=== PATIENT | female | born 1995 | race Caucasian/White ===

== ENCOUNTER 2017-06-20 11:25 | Emergency (ER) | payer MEDICAID, OTHER ==
[2017-06-20 11:55] VITALS: BP 129/84
--- NOTE | 2017-06-20 12:48 | ED Physician Documentation ---
PD HPI HEENT - Stated complaint Stated Complaint: DIZZY - Chief complaint Chief Complaint: General - History obtained from History obtained from: Patient - History of Present Illness Timing - onset: How many weeks ago (1-2 weeks of intermittent dizziness with quick movement. Also having less hearing in ears, more to the right. Some ear pains. Denies vision changes. Says the dizziness does persist some even when lying still the past 2 days. Feeling of some double vision at times.) Timing - details: Gradual onset, Still present Location: Right ear, Left ear Worsens: No: Swalllowing Associated symptoms: No: Fever, Swollen nodes, Facial swelling, Cough Similar symptoms before: Diagnosis (ear wax impactions few years ago had similar symptoms.) Recently seen: Not recently seen Review of Systems Constitutional: denies: Fever, Chills Ears: reports: Loss of hearing (lessened but not lost acuity both ears.), Ear pain. denies: Drainage/discharge, Tinnitus/ringing Nose: denies: Rhinorrhea / runny nose, Congestion, Sinus pressure / pain Throat: denies: Sore throat Respiratory: denies: Cough GI: denies: Nausea, Vomiting, Diarrhea : denies: Dysuria, Frequency Skin: denies: Rash, Lesions Neurologic: denies: Focal weakness, Numbness, Near syncope, Altered mental status, Headache PD PAST MEDICAL HISTORY - Past Medical History Cardiovascular: None Respiratory: None Neuro: None Endocrine/Autoimmune: None - Present Medications Home Medications: Ambulatory Orders Medication Instructions Recorded Confirmed Dexamethasone [Decadron] 4 mg PO DAILY #5 tablet 06/20/17 Doxycycline Monohydrate 100 mg PO BID #14 tablet 06/20/17 Meclizine [Antivert] 12.5 mg PO Q6H PRN #30 tablet 06/20/17 Neomycin/Polymyxin B Sulf/Hc 3 drops EACHEAR QID #1 bottle 06/20/17 [Wjaotdzc-Iwgrsijst-He Ear Soln] - Allergies Allergies/Adverse Reactions: Allergies Allergy/AdvReac Type Severity Reaction Status Date / Time No Known Drug Allergies Allergy Verified 06/20/17 11:55 PD ED PE NORMAL - Vitals Vital signs reviewed: Yes - General General: Alert and oriented X 3, No acute distress, Well developed/nourished - HEENT HEENT: PERRL, EOMI (with mild nystagmus to the right. ), Moist mucous membranes , Pharynx benign, Dentition benign. No: Ears normal (ear wax occluding canal on both sides. ) - Neck Neck: Supple, no meningeal sign, Other (mild preauricular adenopathy. ) - Cardiac Cardiac: RRR, No murmur - Respiratory Respiratory: Clear bilaterally - Abdomen Abdomen: Soft, Non tender - Derm Derm: Normal color, Warm and dry, No rash - Neuro Neuro: Alert and oriented X 3, director of it operations 2-12 intact, No motor deficit, No sensory deficit, Normal speech, Other - Psych Psych: Normal mood, Normal affect Results - Vitals Vitals: Oxygen O2 Source Room air PD MEDICAL DECISION MAKING - ED course Complexity details: re-evaluated patient (significantly long for nurse flushing of ears, and the ears were tender/painful for flushing. However the wax impaction did clear and canal obviously infected behind. Presume this connects to feeling of dizziness and is peripheral. Defer further workup of the vertigo. She is feeling better after the wax removal. ), considered differential, d/w patient Departure - Departure Disposition: 01 Home, Self Care Clinical Impression: Dizziness Cerumen impaction Qualifiers: Laterality: bilateral Qualified Code(s): H61.23 - Impacted cerumen, bilateral Otitis externa Qualifiers: Otitis externa type: other infective Chronicity: acute Laterality: bilateral Qualified Code(s): H60.393 - Other infective otitis externa, bilateral Condition: Stable Record reviewed to determine appropriate education?: Yes Instructions: ED Vertigo Unspecified, ED Otitis Externa Follow-Up: [facility] [Provider Group] [facility] [Provider Group] Prescriptions: Dexamethasone [Decadron] 4 mg PO DAILY #5 tablet Doxycycline Monohydrate 100 mg PO BID #14 tablet Meclizine [Antivert] 12.5 mg PO Q6H PRN #30 tablet PRN Reason: Vertigo Neomycin/Polymyxin B Sulf/Hc [Mjkwqpzc-Rkksogdii-Fg Ear Soln] 3 drops EACHEAR QID #1 bottle Comments: The dizziness is presumed from the inflammation and infection of the ear canals which then related to the earwax blockage. Hopefully with that cleared out and will treat the infection with eardrops as well as oral medication, a presume the dizziness will improve. He can use meclizine if needed for the dizziness itself. Dexamethasone and doxycycline are for inflammation and infection orally. In the eardrops are to be used 4 times a day for the next 4-5 days in both ears to treated topically as well. Recheck if not better over the next few days. Rest off work for couple of days due to the dizziness. Return if not improved over the next few days. Forms: Activity restrictions Discharge Date/Time: 06/20/17 15:40
[2017-06-20] MEDS ORDERED: MECLIZINE 12.5 MG TABLET PO STA (13:14)
[2017-06-20] MEDS ORDERED: DEXAMETHASONE 10 MG/ML VIAL PO STA (13:14)
[2017-06-20] MEDS ORDERED: LIDOCAINE TOPICAL 4% 50 ML BOTTLE MM STA (14:29)
[2017-06-20] MEDS ORDERED: HYDROcod/ACETAM 5/325 MG TABLET PO STA (14:29)
== END 2017-06-20 15:40 | disposition home or self-care (01) ==
LOC: ED 11:25
DX: H61.23 Impacted cerumen, bilateral (principal); H60.593 Other noninfective acute otitis externa, bilateral; R42 Dizziness and giddiness
CPT/HCPCS: 99283; 99284; A9270

== ENCOUNTER 2018-03-29 13:32 | Outpatient (CLI) | payer OTHER, MEDICAID | END 2018-03-29 13:33 | disposition critical access hospital (66) | LOC: EMS 13:32 | PROVIDERS: ATTEND Surgery | DX: M79.661 Pain in right lower leg (principal); V43.52XA Car driver injured in collision with other type car in traffic accident, initial encounter; Y92.413 State road as the place of occurrence of the external cause | CPT/HCPCS: A0425; A0429 ==

== ENCOUNTER 2018-03-29 13:40 | Emergency (ER) | payer MEDICAID, OTHER ==
[2018-03-29] MEDS ORDERED: HYDROcod/ACETAM 5/325 MG TABLET PO STA (13:46)
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
[2018-03-29 15:52] VITALS: BP 130/76
== END 2018-03-29 15:50 | disposition home or self-care (01) ==
LOC: ED 13:40
DX: S06.0X1A Concussion with loss of consciousness of 30 minutes or less, initial encounter (principal); S80.01XA Contusion of right knee, initial encounter; V89.2XXA Person injured in unspecified motor-vehicle accident, traffic, initial encounter; Y92.410 Unspecified street and highway as the place of occurrence of the external cause
CPT/HCPCS: 70450; 72125; 73564; 99283; A9270

== ENCOUNTER 2021-07-23 10:29 | Emergency (ER) | payer BC, MEDICAID ==
[2021-07-23 10:59] LABS: BASOPHILS # (AUTO) 0.1 10^3/uL (0.0-0.1); BASOPHILS % (AUTO) 1.2 %; EOSINOPHILS # (AUTO) 0.9 10^3/uL (0.0-0.7); EOSINOPHILS % (AUTO) 13.8 %; HCT - HEMATOCRIT 42.2 % (37.0-47.0); HGB - HEMOGLOBIN 14.4 g/dL (12.0-16.0); LYMPHOCYTES # (AUTO) 1.9 10^3/uL (1.5-3.5); LYMPHOCYTES % (AUTO) 28.7 %; MEAN CORPUSCULAR HGB CONC 34.1 g/dL (32.0-36.0); MEAN CORPUSCULAR VOLUME 96.6 fL (81.0-99.0); MEAN PLATELET VOLUME 12.5 fL (7.9-10.8); MONOCYTES # (AUTO) 0.5 10^3/uL (0.0-1.0); MONOCYTES % (AUTO) 6.8 %; NEUTROPHILS # (AUTO) 3.3 10^3/uL (1.5-6.6); NEUTROPHILS % (AUTO) 49.3 %; PLT - PLATELET COUNT 164 10^3/uL (130-450); RED BLOOD COUNT 4.37 10^6/uL (4.20-5.40); RED CELL DISTRIBUTION WIDTH 12.4 % (12.0-15.0); WHITE BLOOD COUNT 6.7 x10^3/uL (4.8-10.8)
[2021-07-23] MEDS: SODIUM CHLORIDE 0.9% 1,000 ML IV STA (10:59)
[2021-07-23 11:20] LABS: ALBUMIN/GLOBULIN RATIO 1.3 (1.0-2.2); CALCIUM 8.2 mg/dL (8.5-10.3); CREATININE 0.7 mg/dL (0.4-1.0); POTASSIUM 3.7 mmol/L (3.5-5.0); TOTAL PROTEIN 7.1 g/dL (6.7-8.2)
--- NOTE | 2021-07-23 11:45 | ED Physician Documentation ---
History of Present Illness - Stated complaint Stated Complaint: ABDOMINAL PAIN - Chief complaint Chief Complaint: Abd Pain - History obtained from History obtained from: Patient - Additonal information Additional information: The patient comes to the emergency department with chief complaint of epigastric pain for 3 days. She states she is also felt very bloated. She is not sure if this is because she only has a bowel movement every 3 to 4 days; however, the patient also states she really does not eat much of anything on a regular basis. 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 The patient denies any fevers or chills. No vomiting, though she does sometimes get nauseated. Patient denies any other complaints at this time. No personal or family history of ulcers. No personal or family history of gallbladder disease. Review of Systems Ten Systems: 10 systems reviewed and negative Constitutional: reports: Reviewed and negative Eyes: reports: Reviewed and negative Ears: reports: Reviewed and negative Nose: reports: Reviewed and negative Throat: reports: Reviewed and negative Cardiac: reports: Reviewed and negative Respiratory: reports: Reviewed and negative GI: reports: Abdominal Pain : reports: Reviewed and negative Skin: reports: Reviewed and negative Musculoskeletal: reports: Reviewed and negative Neurologic: reports: Reviewed and negative Psychiatric: reports: Reviewed and negative Endocrine: reports: Reviewed and negative Immunocompromised: reports: Reviewed and negative PD PAST MEDICAL HISTORY - Past Medical History Past Medical History: No Cardiovascular: None Respiratory: None Endocrine/Autoimmune: None - Past Surgical History Past Surgical History: No - Present Medications Home Medications: Ambulatory Orders Medication Instructions Recorded Confirmed Omeprazole 40 mg PO DAILY #30 07/23/21 - Allergies Allergies/Adverse Reactions: Allergies Allergy/AdvReac Type Severity Reaction Status Date / Time No Known Drug Allergies Allergy Verified 07/23/21 10:36 - Social History Does the pt smoke?: No Smoking Status: Never smoker Does the pt drink ETOH?: Yes Does the pt have substance abuse?: No - Immunizations Immunizations are current?: Yes - POLST Patient has POLST: No PD ED PE NORMAL - Vitals Vital signs reviewed: Yes - General General: Alert and oriented X 3, No acute distress, Well developed/nourished - HEENT HEENT: Atraumatic, PERRL, EOMI, Moist mucous membranes - Neck Neck: Supple, no meningeal sign - Cardiac Cardiac: RRR, No murmur, Strong equal pulses - Respiratory Respiratory: No respiratory distress, Clear bilaterally - Abdomen Abdomen: Soft, Non tender (No epigastric tenderness.), Non distended - Back Back: No CVA TTP - Derm Derm: Normal color, Warm and dry, No rash - Extremities Extremities: No deformity, No edema, No calf tenderness / cord - Neuro Neuro: Alert and oriented X 3, Other (Grossly intact) - Psych Psych: Normal mood, Normal affect Results - Vitals Vitals: Vital Signs - 24 hr 07/23/21 07/23/21 10:33 12:36 Temperature 36.8 C Heart Rate 81 78 Respiratory 16 18 Rate Blood Pressure 117/60 110/59 L O2 Saturation 100 99 Oxygen O2 Source Room air - Labs Labs: Laboratory Tests 07/23/21 07/23/21 10:54 10:54 WBC 6.7 RBC 4.37 Hgb 14.4 Hct 42.2 MCV 96.6 MCH 33.0 H MCHC 34.1 RDW 12.4 Plt Count 164 MPV 12.5 H Neut # (Auto) 3.3 Lymph # (Auto) 1.9 [place] # (Auto) 0.5 Eos # (Auto) 0.9 H Baso # (Auto) 0.1 Absolute Nucleated RBC 0.00 Nucleated RBC % 0.0 Sodium 138 Potassium 3.7 Chloride 104 Carbon Dioxide 24 Anion Gap 10.0 BUN 12 Creatinine 0.7 Estimated GFR (MDRD) 101 Glucose 88 Calcium 8.2 L Total Bilirubin 1.0 AST 23 ALT 21 Alkaline Phosphatase 36 L Total Protein 7.1 Albumin 4.0 Globulin 3.1 Albumin/Globulin Ratio 1.3 Lipase 27 PD MEDICAL DECISION MAKING - ED course Complexity details: reviewed results, re-evaluated patient, considered differential, d/w patient ED course: Patient was worked up with laboratory studies, which were unremarkable, and treated with a GI cocktail. We have discussed symptomatic management at home, as well as the usual indications for return. I do not feel imaging is emergently indicated today. Departure - Departure Disposition: Home, Self Care Clinical Impression: Abdominal pain Qualifiers: Abdominal location: upper abdomen, unspecified Qualified Code(s): R10.10 - Upper abdominal pain, unspecified Condition: Stable Instructions: ED Abdominal Pain Female Non-Specific Abdominal Pain, ED GERD Prescriptions: Omeprazole 40 mg PO DAILY #30 Comments: Your laboratory studies look good. It is not clear why you are having the bloating and upper abdominal pain, though it is very possible that you are jiménez ving some reflux of gastric contents. You may also have some inflammation of the lining of your stomach, which can be a precursor to development of ulcers. It is important that you follow-up with your primary doctor to discuss whether you should have an endoscopy performed to get a better look at the inside of your esophagus and stomach. Please take the medicine prescribed to help with the inflammation. As far as her constipation, please be sure to get plenty of fiber in your diet. Having at least one serving of fresh fruits or vegetables with every meal can help achieve this goal. Discharge Date/Time: 07/23/21 13:14
[2021-07-23] MEDS: MAG HYDROX/AL HYDROX/SIMETH 30 ML UDC PO STA (12:03)
[2021-07-23] MEDS: LIDOCAINE VISCOUS 2% 15 ML UDC MM STA (12:03)
[2021-07-23 13:14] VITALS: BP 110/59
== END 2021-07-23 13:14 | disposition home or self-care (01) ==
LOC: ED 10:29
DX: R10.13 Epigastric pain (principal); R14.0 Abdominal distension (gaseous); K59.00 Constipation, unspecified
CPT/HCPCS: 36415; 80053; 83690; 85025; 99283; A9270

== ENCOUNTER 2022-12-06 14:53 | Outpatient (CLI) | payer BC ==
[2022-12-06 15:14] LABS: BASOPHILS % (AUTO) 0.5 %; EOSINOPHILS # (AUTO) 0.2 10^3/uL (0.0-0.7); EOSINOPHILS % (AUTO) 2.5 %; HCT - HEMATOCRIT 37.1 % (37.0-47.0); LYMPHOCYTES # (AUTO) 2.1 10^3/uL (1.5-3.5); LYMPHOCYTES % (AUTO) 25.6 %; MEAN CORPUSCULAR HEMOGLOBIN 32.3 pg (27.0-31.0); MEAN CORPUSCULAR VOLUME 92.1 fL (81.0-99.0); MEAN PLATELET VOLUME 11.2 fL (7.9-10.8); MONOCYTES # (AUTO) 0.4 10^3/uL (0.0-1.0); MONOCYTES % (AUTO) 4.8 %; NEUTROPHILS # (AUTO) 5.4 10^3/uL (1.5-6.6); NEUTROPHILS % (AUTO) 66.4 %; PLT - PLATELET COUNT 185 10^3/uL (130-450); RED BLOOD COUNT 4.03 10^6/uL (4.20-5.40); RED CELL DISTRIBUTION WIDTH 12.5 % (12.0-15.0); WHITE BLOOD COUNT 8.1 x10^3/uL (4.8-10.8)
[2022-12-07 03:09] LABS: RPR Non Reactive (Non Reactive)
[2022-12-07 04:08] LABS: HBsAG SCREEN Negative (Negative); HCV AB Non Reactive (Non Reactive); HIV SCREEN 4TH GENERATION Non Reactive (Non Reactive)
[2022-12-07 08:09] LABS: VARICELLA-ZOSTER AB IGG 513 index (Immune >165)
== END 2022-12-06 14:54 | disposition home or self-care (01) ==
LOC: LAB 14:53
PROVIDERS: ATTEND Nurse Practitioner Obstetrics & Gynecology
DX: Z36.89 Encounter for other specified antenatal screening (principal)
CPT/HCPCS: 36415; 85025; 86592; 86762; 86787; 86803; 86850; 86900; 86901; 87340; 87389

== ENCOUNTER 2022-12-11 12:49 | Outpatient (CLI) | payer BC | END 2022-12-11 12:50 | disposition home or self-care (01) | LOC: LAB 12:49 | PROVIDERS: ATTEND Nurse Practitioner Obstetrics & Gynecology | DX: Z01.89 Encounter for other specified special examinations (principal) | CPT/HCPCS: 36415 ==

== ENCOUNTER 2023-01-17 11:53 | Outpatient (CLI) | payer BC ==
[2023-01-22 10:09] LABS: AFP VALUE 35.4 ng/mL (.); GEST. AGE ON COLLECTION DATE 18.3 weeks (.); GESTAT. AGE METHOD EDD (.); INSULIN DEP DIABETES No (.); MATERNAL AGE AT EDD 28.7 yr (.); MULTIPLE GESTATION No (.); OPEN SPINA BIFIDA RISK 1 IN 10000 (.); RACE Caucasian (.); RESULTS Report (.); TEST RESULTS *Screen Negative* (.); WEIGHT 164 lbs (.)
== END 2023-01-17 11:54 | disposition home or self-care (01) ==
LOC: LAB 11:53
PROVIDERS: ATTEND Nurse Practitioner Obstetrics & Gynecology
DX: Z13.79 Encounter for other screening for genetic and chromosomal anomalies (principal)
CPT/HCPCS: 36415; 82105

== ENCOUNTER 2023-06-26 03:13 | Inpatient (IN) | payer BC ==
[~2023-06-26 03:13] MED LIST: AMPICILLIN 2 GM in SODIUM CHLORIDE 0.9% MINIBAG 100 ML IV ONE; CARBOPROST TROMETHAMINE 250 MCG/ML AMP IM PRN; LABETALOL 20 MG/4 ML SYRINGE IVP PRN; METHYLERGONOVINE 0.2 MG/ML VIAL IM PRN; NIFEdipine 10 MG CAPSULE PO PRN; OXYTOCIN 10 UNIT/ML VIAL IM PRN; OXYTOCIN/SODIUM CHLORIDE 500 ML IV PRN; SODIUM CHLORIDE FLUSH 0.9% 10 ML SYRINGE IVP PRN; TERBUTALINE 1 MG/ML VIAL SUBQ PRN; TRANEXAMIC ACID IN NACL 1,000 MG/100 ML BAG IV PRN; fentaNYL 100 MCG/2 ML VIAL IVP PRN; hydrALAZINE INJ 20 MG/ML VIAL IVP PRN; lidocaine 1% 20 ML MDV ID PRN; miSOPROStoL 200 MCG TABLET BC PRN; miSOPROStoL 200 MCG TABLET PR PRN
[2023-06-26 03:57] LABS: BASOPHILS # (AUTO) 0.1 10^3/uL (0.0-0.1); BASOPHILS % (AUTO) 0.3 %; EOSINOPHILS # (AUTO) 0.1 10^3/uL (0.0-0.7); EOSINOPHILS % (AUTO) 0.5 %; HCT - HEMATOCRIT 38.5 % (37.0-47.0); HGB - HEMOGLOBIN 13.3 g/dL (12.0-16.0); LYMPHOCYTES % (AUTO) 13.5 %; MEAN CORPUSCULAR HEMOGLOBIN 32.8 pg (27.0-31.0); MEAN CORPUSCULAR HGB CONC 34.5 g/dL (32.0-36.0); MEAN CORPUSCULAR VOLUME 94.8 fL (81.0-99.0); MEAN PLATELET VOLUME 12.8 fL (7.9-10.8); MONOCYTES # (AUTO) 0.8 10^3/uL (0.0-1.0); MONOCYTES % (AUTO) 5.7 %; NEUTROPHILS # (AUTO) 11.6 10^3/uL (1.5-6.6); NEUTROPHILS % (AUTO) 79.5 %; PLT - PLATELET COUNT 122 10^3/uL (130-450); RED BLOOD COUNT 4.06 10^6/uL (4.20-5.40); RED CELL DISTRIBUTION WIDTH 14.2 % (12.0-15.0); WHITE BLOOD COUNT 14.7 x10^3/uL (4.8-10.8)
[2023-06-26] MEDS ORDERED: SODIUM CHLORIDE FLUSH 0.9% 10 ML SYRINGE IVP SCH (04:00)
[2023-06-26] MEDS: LACTATED RINGERS 1,000 ML IV PRN ×3 (04:15→09:58)
[2023-06-26] MEDS ORDERED: ePHEDrine 50 MG/ML VIAL IVP ONE (07:08)
[2023-06-26] MEDS ORDERED: ROPIVACAINE 0.2% 200 MG/100 ML BAG EP ONE (07:09)
[2023-06-26] MEDS ORDERED: LIDOCAINE 2%-EPI 1:100000 20 ML MDV ONE (07:09)
--- NOTE | 2023-06-26 07:30 | HISTORY & PHYSICAL EXAMINATION ---
Admit History - Visit Reason Visit Reason: Contractions - : 1 Parity: 0 Premature: 0 Ectopic: 0 : 0 Care: positive: [facility] Risk/History: positive: None Complications This : positive: None Smoking Status: Never smoker - Mother's Labs Mother's Blood Type: positive: A Mother's RH: positive: Positive GBS: positive: Group B Strep Positive Rubella Status: positive: Immune - HPI Current EDU 06/18/23 Gestation 41 Weeks and 1 Days 1 Vital Signs Temperature 36.9 C 06/26/23 03:17 Heart Rate 100 06/26/23 03:17 Respiratory Rate 18 06/26/23 03:17 Blood Pressure 96/63 06/26/23 03:17 Temperature 36.9 C 06/26/23 03:17 Heart Rate 100 06/26/23 03:17 Respiratory Rate 18 06/26/23 03:17 Blood Pressure 96/63 06/26/23 03:17 O2 Saturation If not protocol: Oxygen Flow, liters/minute - NST Procedure FHR baseline 145, moderate variability, + accels, no decels Contractions palpate moderate to strong every 4-6 minutes with soft resting tone Meds/Allgy - Home Medications Home Medications: Ambulatory Orders Medication Instructions Recorded Confirmed Omeprazole 40 mg PO DAILY #30 07/23/21 - Allergies Allergies/Adverse Reactions: Allergies Allergy/AdvReac Type Severity Reaction Status Date / Time No Known Drug Allergies Allergy Verified 07/23/21 10:36 Review of Systems - Constitutional Constitutional: denies: Fatigue, Fever, Chills, Malaise - Eyes Eyes: denies: Blurred vision, Spots in vision, Dipolpia - Cardiovascular Cariovascular: denies: Irregular heart rate, Palpitations, Chest pain, Edema - Respiratory Respiratory: denies: Cough, Wheezing, SOB at rest - Gastrointestinal Gastrointestinal: denies: Constipation, Diarrhea, Nausea, Vomiting - Genitourinary Genitourinary: denies: Dysuria - Integumentary Integumentary: denies: Rash, Pruritis - Neurological Neurological: denies: Headache - Psychiatric Psychiatric: reports: Anxiety. denies: Depression - All Other Systems All Other Systems: reports: Reviewed and negative Physical - Abdominal Exam Vital Signs: Temp Pulse Resp BP Pulse Ox O2 Flow Rate 36.9 C 100 18 96/63 06/26/23 03:17 06/26/23 03:17 06/26/23 03:17 06/26/23 03:17 Contraction Frequency (min/apart): 4-6 Contraction Intensity: positive: Moderate Uterine Resting Tone: positive: Soft - Monitoring Heart Rate Baseline: 145 Strip Review: positive: Category I - Presentation Presentation: positive: Vertex - Vaginal Exam Membranes: positive: Membranes intact Dilation (in cm): 3 Effacement (%): 80 Station: positive: -2 Cervical Position: positive: Midposition - Speculum Exam Speculum Exam Performed: positive: No Plan for Labor - Plan For Labor I expect patient to be DC'd or transferred within 96 hours.: Yes Plan for Labor: HPI: Beverly is a 27yo @ 41.1wks gestation by LMP c/w 9.6wk U/S who presents to [facility] with complaints of contractions which have increased in both frequency and intensity since 2029 last evening. Upon arrival her cervix is 3/80/-2 and vertex with intact membranes. She denies vaginal bleeding or leakage of fluid and reports +FM. She has been a patient of [facility] for the duration of her which has remained uncomplicated. She is noted to be GBS positive. She is supported by her partner Juarez today. 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 SAB x0. Last pap 11/2021 WNL, HPV negative. Denies history of gonorrhea, chlamydia, genital herpes, oral herpes or any other STI. Sexual partner does NOT have HSV (oral or genital). Medical Hx: Anxiety/depression Surgical Hx: none Social Hx: Monogamous with male partner. Stopped drinking alcohol due to pregnan cy. Denies current use of tobacco, marijuana or other recreational drugs. Reports that she is safe in current relationship. Family Hx: Denies family history of congenital anomalies, Cystic Fibrosis or chromosomal abnormalities. Allergies: NKDA Medications: PNV course: A positive, antibody negative Rubella immune, varicella immune Hep B negative, Hep C negative HIV non-reactive, RPR non-reactive Initial U/S @ 9.6wks c/w LMP dating NIPS - negative MsAFP - negative FAS WNL. Posterior placenta, no previa. Size c/w dating (EFW 92%tile). 3VC. MARIUM WNL Glucola 90 COVID vaccine - declined Influenza vaccine - declined Tdap vaccine -received 3rd trimester RSV vaccine - received 3rd trimester GBS POSITIVE Physical exam: Normocephalic, atraumatic Heart RRR w/o M/G/R Lungs CTAB Abdomen gravid, soft, nontender FHR baseline 145, moderate variability, + accels, no decels Contractions palpate moderate every 4-6 minutes with soft resting tone SVE 3/80/-2 and vertex with intact membranes EFW 3600g Bilateral LE's trace edema Mood is good Assessment: 27yo @ 41.1wks gestation by LMP c/w 9.6wk U/S Early labor Postdates GBS positive FHR Category I Plan: Admit to [facility] for expectant management. Continuous monitoring. Jacuzzi PRN. Nitrous oxide PRN. Epidural per maternal request. Anticipate .
--- NOTE | 2023-06-26 08:13 | ANESTHESIA ---
Pre-Anesthesia VS, & Labs - Diagnosis LABORING - Procedure PLACEMENT OF LABOR EPIDURAL Vital Signs: Temp Pulse Resp BP Pulse Ox O2 Flow Rate 36.9 C 100 18 96/63 06/26/23 03:17 06/26/23 03:17 06/26/23 03:17 06/26/23 03:17 Height: 5 ft 5 in Weight (kg): 91.626 kg Body Mass Index: 33.6 BMI Classification: Obese - NPO Other (BREAKFAST ABOUT 0700) Last Food Intake: 0700 - Is Patient ?: Yes - Lab Results Current Lab Results: Laboratory Tests 06/26/23 03:35: WBC 14.7 H, RBC 4.06 L, Hgb 13.3, Hct 38.5, MCV 94.8, MCH 32.8 H , MCHC 34.5, RDW 14.2, Plt Count 122 L, MPV 12.8 H, Neut # (Auto) 11.6 H, Lymph # (Auto) 2.0, [place] # (Auto) 0.8, Eos # (Auto) 0.1, Baso # (Auto) 0.1, Absolute Nucleated RBC 0.00, Nucleated RBC % 0.0 06/26/23 03:35: Blood Type A POSITIVE, Antibody Screen NEGATIVE Fish Bones: 06/26/23 03:35 Home Medications and Allergies Active Medications Carboprost Tromethamine (Carboprost Tromethamine 250 Mcg/Ml Amp) 250 mcg IM .ONCE PRN PRN Reason: Hemorrhage Fentanyl (Fentanyl 100 Mcg/2 Ml Vial) 50 mcg IVP Q1H PRN PRN Reason: Severe Pain (score 7-10) Hydralazine HCl (Hydralazine Inj 20 Mg/Ml Vial) 5 - 10 mg IVP Q20M PRN; Protocol PRN Reason: SBP> or= 160 OR DBP> or= 110 Hydralazine HCl (Hydralazine Inj 20 Mg/Ml Vial) 10 mg IVP .ONCE PRN; Protocol PRN Reason: SBP> or= 160 OR DBP> or= 110 Lactated Ringer's (Lr) 500 mls @ 999 mls/hr IV PRN PRN PRN Reason: PER PHYSICIAN ORDER Last Infusion: 06/26/23 07:46 Dose: Infused Oxytocin/Sodium Chloride (Pitocin/Sodium Chloride) 500 mls @ 999 mls/hr IV PRN PRN; Protocol PRN Reason: POST- HEMORR PREVENTION Tranexamic Acid (Tranexamic 1,000 Mg/100ml-Nacl) 1,000 mg in 100 mls @ 600 mls/hr IV Q30M PRN PRN Reason: EBL >1200mL and within 3hr Ampicillin Sodium 1 gm/ Sodium (Chloride) 100 mls @ 200 mls/hr IV Q4H SARIAH Labetalol HCl (Labetalol 20 Mg/4 Ml Syringe) 20 - 80 mg IVP Q10M PRN; Protocol PRN Reason: SBP> or= 160 OR DBP> or= 110 Labetalol HCl (Labetalol 20 Mg/4 Ml Syringe) 20 mg IVP .ONCE PRN; Protocol PRN Reason: SBP> or= 160 OR DBP> or= 110 Labetalol HCl (Labetalol 20 Mg/4 Ml Syringe) 20 - 40 mg IVP Q10M PRN; Protocol PRN Reason: SBP> or= 160 OR DBP> or= 110 Lidocaine HCl (Lidocaine 1% 20 Ml Mdv) 20 ml ID .ONCE PRN PRN Reason: PERINEAL REPAIR Stop: 06/29/23 03:13 Methylergonovine Maleate (Methylergonovine 0.2 Mg/Ml Vial) 0.2 mg IM .ONCE PRN PRN Reason: Hemorrhage Misoprostol (Misoprostol 200 Mcg Tablet) 600 mcg BC .ONCE PRN PRN Reason: Hemorrhage Misoprostol (Misoprostol 200 Mcg Tablet) 800 mcg [place] .ONCE PRN PRN Reason: Hemorrhage Nifedipine (Nifedipine 10 Mg Capsule) 10 - 20 mg PO Q20M PRN; Protocol PRN Reason: SBP> or= 160 OR DBP> or= 110 Oxytocin (Oxytocin 10 Unit/Ml Vial) 10 unit IM .ONCE PRN PRN Reason: Step One if no IV access. Sodium Chloride (Sodium Chloride Flush 0.9% 10 Ml Syringe) 10 ml IVP PRN PRN PRN Reason: NEEDED PER PROVIDER ORDERS Sodium Chloride (Sodium Chloride Flush 0.9% 10 Ml Syringe) 10 ml IVP Q8H SARIAH Terbutaline Sulfate (Terbutaline 1 Mg/Ml Vial) 0.25 mg SUBQ .ONCE PRN PRN Reason: Tachystole Allergies/Adverse Reactions: Allergies Allergy/AdvReac Type Severity Reaction Status Date / Time No Known Drug Allergies Allergy Verified 07/23/21 10:36 Anes History & Medical History - Anesthetic History Anesthesia Complications: reports: No previous complications Family history of Anesthesia Complications: Denies Family history of Malignant Hyperthermia: Denies - Medical History Cardiovascular: reports: None Pulmonary: reports: None Gastrointestinal: reports: None Urinary: reports: None Endocrine/Autoimmune: reports: None Smoking Status: Never smoker - Obstetrical History : 1 Parity: 0 Events: reports: None Complications: reports: None OB Anesthesia History: , 41.4 WEEKS; 3 CM, HEALTHY UNEVENTFUL Exam General: Alert Mouth Openin Fingerbreadth Neck Mobility: Normal Mallampati classification: II Cardiovascular: Regular rate Plan Anesthesia Type: Epidural Consent for Procedure(s) Verified and Reviewed: Yes Code Status: Attempt Resuscitation ASA classification: 1-Healthy patient Is this case an emergency?: No
[2023-06-26] MEDS ORDERED: diphenhydrAMINE INJ 50 MG/ML VIAL IVP PRN (08:14)
[2023-06-26] MEDS ORDERED: ONDANSETRON 4 MG/2 ML VIAL IVP PRN (08:14)
[2023-06-26] MEDS ORDERED: ROPIVACAINE 0.2% 200 MG/100 ML BAG EP PRN (08:14)
[2023-06-26] MEDS ORDERED: NALBUPHINE 10 MG/ML AMP IVP PRN (08:14)
[2023-06-26] MEDS: AMPICILLIN 1 GM in SODIUM CHLORIDE 0.9% MINIBAG 100 ML IV SCH ×3 (08:19→17:19)
--- NOTE | 2023-06-26 09:28 | PROVIDER PROGRESS NOTE ---
Labor Progress Note - Uterine Monitoring Uterine Monitoring Mode: positive: External toco Contraction Frequency (min/apart): 4-6 Contraction Intensity: positive: Moderate Uterine Resting Tone: positive: Soft - Monitoring Monitor Mode: positive: External ultrasound Heart Rate Baseline: 160 Heart Rate Variability: positive: Moderate (6-25 bmp) Accelerations: positive: Present, 15x15 Decelerations: positive: None Strip Review: positive: Category I - Vaginal Exam Dilation (in cm): 5 Effacement (%): 90 Station: -2 Cervical Position: Midposition - Labor Progress Note Labor Progress Note/Additional Text: S: Feeling much more comfortable with her epidural in place. She is hoping to be able to get a little sleep. Her mom and FOB Sonny are supportive at the bedside. O: FHR baseline 160s, moderate variability, + accels, no decels Contractions palpate moderate every 4-6 minutes with soft resting tone SVE 5/90/-2 and vertex AROM for a moderate amount of clear fluid S/p 2 doses of ampicillin for GBS prophylaxis per protocol A: 27yo @ 41.1wks gestation by LMP c/w 9.6wk U/S Postdates Active labor GBS positive FHR Category I P: Continuous monitoring. Continue ampicillin for GBS prophyalxis per protocol. Initial IV fluid bolus secondary to elevated FHR baseline and decreased urine output that appears concentrated. Maintain epidural for pain management. Encouraged rotation in bed on peanut ball. Anticipate .
[2023-06-26] MEDS: LACTATED RINGERS 1,000 ML IV SCH ×2 (10:01→22:31)
[2023-06-26] MEDS ORDERED: OXYTOCIN/SODIUM CHLORIDE 500 ML IV SCH ×2 (13:30→15:29)
--- NOTE | 2023-06-26 13:39 | PROVIDER PROGRESS NOTE ---
Labor Progress Note - Uterine Monitoring Uterine Monitoring Mode: positive: External toco Contraction Frequency (min/apart): occasional Contraction Intensity: positive: Moderate Uterine Resting Tone: positive: Soft - Monitoring Monitor Mode: positive: External ultrasound Heart Rate Baseline: 150 Heart Rate Variability: positive: Moderate (6-25 bmp) Accelerations: positive: Present, 15x15 Decelerations: positive: None Strip Review: positive: Category I - Vaginal Exam Dilation (in cm): 6-7 Effacement (%): 90 Station: 0 Cervical Position: Anterior - Labor Progress Note Labor Progress Note/Additional Text: S: Feeling comfortable with her epidural. She is occasionally having some d iscomfort with position changes but overall has remained comfortable. She continues to feel some anxiety around having her baby. Her partner Sonny, his mom, and her mom are all present and supportive at the bedside. O: FHR baseline 150s, moderate variability, + accels, no decels Contractions palpate moderate occasionally and have significantly decreased in frequency since placement of her epidural. SVE unchanged from last SVE (/) AROM x 4 hours S/p 3 doses of ampicillin for GBS prophylaxis per protocol A: 27yo @ 41.1wks gestation by LMP c/w 9.6wk U/S Active labor Postdates GBS positive FHR Category I P: Initiate pitocin for augmentation of labor with titration per protocol. Continuous monitoring. Maintain epidural for pain management. Encouraged rotation in bed on peanut ball q 30 minutes. Continue ampicillin for GBS prophylaxis per protocol. Anticipate .
--- NOTE | 2023-06-26 16:37 | PROVIDER PROGRESS NOTE ---
Labor Progress Note - Uterine Monitoring Uterine Monitoring Mode: positive: External toco Contraction Frequency (min/apart): 4-6 Contraction Intensity: positive: Moderate to strong Uterine Resting Tone: positive: Soft - Monitoring Monitor Mode: positive: External ultrasound Heart Rate Baseline: 150 Heart Rate Variability: positive: Moderate (6-25 bmp) Accelerations: positive: Present, 15x15 Decelerations: positive: None Strip Review: positive: Category I - Vaginal Exam Dilation (in cm): 8 Effacement (%): 90 Station: 0 Cervical Position: Anterior - Labor Progress Note Labor Progress Note/Additional Text: S: Patient comfortable with her epidural. She is feeling very tired and is tearful because she is concerned that she isn't going to have the energy to be able to push her baby out. Nursing staff is going to position her in her most comfortable position and she is going to try to rest x 1 hour without position changes to see if she can regain some of her energy. Her family is supportive at the bedside. O: FHR baseline 150s, moderate variability, + accels, no decels Contractions palpate moderate to strong every 4-6 minutes with soft resting tone SVE 8/90/0 and vertex AROM x 7 hours Pitocin @ 6mU/mL A: 27yo @ 41.1wks gestation by LMP c/w 9.6wk U/S Active labor Postdates GBS positive FHR Category I P: Continue pitocin for augmentation of labor with titration per protocol. Continuous monitoring. Encouraged movement in bed on peanut ball. Continue epidural for pain management. Continue ampicillin for GBS prophylaxis per protocol. Anticipate .
[2023-06-26] MEDS ORDERED: HYDROCORTISONE 1% CREAM 28 GM TUBE PR PRN (21:51)
[2023-06-26] MEDS ORDERED: WITCH HAZEL/GLYCERIN 1 PAD TOP PRN (21:51)
--- NOTE | 2023-06-26 22:16 | DELIVERY NOTE ---
Delivery Note - Labor Labor: positive: Spontaneous, Augmented by oxytocin - Delivery Method Delivery Method: positive: Spontaneous vaginal delivery - Presentation Presentation: positive: Vertex, STARR - right occiput anterior - Nuchal Cord Nuchal Cord: positive: None - Amniotic Fluid Description Amniotic Fluid Description: positive: Clear - Episiotomy Type Episiotomy Type: positive: None - Laceration Laceration: positive: 2nd degree, Vaginal - Suture Suture Type: positive: Vicryl, Chromic Suture Size: positive: 2-0, 3-0 - Delivery Outcome Delivery Outcome: positive: Livebirth - [place]: positive: Placed in direct skin contact with mother, Stimulated, Warmed, [place] used [place] sex: positive: Female - Cord Cord: positive: 3 vessels - Placenta Placenta: positive: Intact, Spontaneous - Estimated Blood Loss Estimated Blood Loss (in cc): 700 - Post Delivery Events Post Delivery Events: positive: Shoulder dystocia, Other - Delivery Comments (Free Text/Narrative) Delivery Comments (Free Text/Narrative): Labor: This 27yo @ 41.1wks gestation by LMP c/w 10wk U/S presented to [facility] on 06/26/2023 with c/o contractions which had increased in frequency and intensity since 2030 on 06/26/2022. Upon arrival cervix was 3/90/-1 and vertex with intact membranes. FHR pattern demonstrated a Category I pattern throughout labor. Epidural was placed per maternal request. Following epidural placement the patient contractions decreased infrequency significantly and AROM occurred at 0923 and was noted to be a moderate amount of clear fluid. Pitocin was initiated for augmentation of labor at 1513 for a maximum infusion rate of 4mU/mL. Pt progressed to c/c/+1 @ 1834 with onset of pushing at 1858. : Normal SVB of viable female infant on 06/26/2023 @ 2019. There was a 35 second shoulder dystocia which resolved with Masha. Baby was initially in an STARR position and then spontaneously restituted to LOP position and the posterior arm was delivered. No nuchal cord. The was placed on maternal abdomen, stimulated, dried, and placed skin to skin. 's were 8/9 at 1 and 5 minutes respectively. Pitocin administered via IV for hemostasis. The umbilical cord was allowed to stop pulsating at which time it was doubly clamped and a segment was collected for cord gases. 3VC. Fundal massage and gentle cord traction applied for active management of the third stage. Placenta delivered spontaneously and intact @ 2030. Fourth stage: Uterine fundus firm with brisk vaginal bleeding noted from midline vaginal laceration. The perineum, cervix and vagina were inspected and found to have a 1st degree vaginal laceration which was repaired using a 2-[address]-1 needle in standard fashion and under sterile conditions. In addition there was an extension to the left labia which was repaired using a 3-[address]-1 needle in standard fashion and under sterile conditions. Despite vaginal pressure and continued attempts of suturing bleeding vaginal laceration at the midline hemostatis was unable to be achieved. The area immediately behind the laceration appeared to be increasing in size and I was concerned there may be a developing hematoma. mail caller physician was contacted and presence requested at the bedside to evaluate laceration and potentially developing hematoma. mail caller physician presented at the bedside and made an additional attempt to repair laceration. The rate of bleeding improved however complete hemostasis was unable to be achieved and vaginal packing x 12 hours was recommended by physician. Vaginal packing inserted and mendez urinary catheter inserted. TXA administered. Throughout the uterine fundus remained firm and there was no e xcessive uterine bleeding. EBL 700mL. Skin to skin contact initiated. Family bonding well. Both mother and baby were left in stable condition.
[2023-06-26] MEDS: IBUPROFEN 800 MG TABLET PO SCH (22:32)
[2023-06-26] MEDS: ACETAMINOPHEN 500 MG TABLET PO SCH (22:32)
[2023-06-27] MEDS: IBUPROFEN 800 MG TABLET PO SCH ×3 (04:20→18:30)
[2023-06-27] MEDS: ACETAMINOPHEN 500 MG TABLET PO SCH ×3 (06:25→23:10)
[2023-06-27] MEDS: oxyCODONE 5 MG TABLET PO PRN ×3 (07:28→18:33)
[2023-06-27] MEDS: DOCUSATE SODIUM 100 MG CAPSULE PO SCH ×2 (15:03→23:10)
--- NOTE | 2023-06-27 17:36 | PROVIDER PROGRESS NOTE ---
Subjective - Subjective Subjective: S: Beverly has been feeling a significant amount of vaginal pain when she gets up to move around associated with the vaginal packing in her vagina. Her bleeding has been decreased and is light. She received oral pain medication which she states does help. She states she was able to get some rest last night but is still feeling very tired. She is without difficulty and bonding well with her baby. Her mom and partner Sonny are both supportive at the bedside. O: Heart RRR w/o M/G/R, lungs CTAB, abdomen soft and nontender with fundus firm at U. Perineum intact. Vaginal packing removed. Area of concern for hematoma appears bruised but is decreased in size and there is not longer suspected hematoma present. Light lochia rubra. Bilateral LE's trace edema. A: 27yo -->P1 PPD#1 s/p TSVB viable female infant 1st degree vaginal laceration with concern for developing hematoma - resolved and intact P: Continue routine care and medications. Remove mendez catheter following successful walk today. Evaluate for discharge home tomorrow. Objective - Vital Signs/Intake & Output Vital Signs: Vital Signs x48h Temp Pulse Resp BP 06/27/23 12:22 36.6 C 89 17 106/63 Intake & Output: Intake & Output 06/24/23 06/25/23 06/26/23 06/27/23 23:59 23:59 23:59 23:59 Intake Total 2789.817 617.15 Output Total 2425 1525 Balance 364.817 -907.85 - Lab Results Fish Bones: 06/26/23 03:35
[2023-06-28] MEDS: IBUPROFEN 800 MG TABLET PO SCH ×3 (00:14→14:53)
[2023-06-28 04:45] VITALS: O2SAT 98
[2023-06-28] MEDS: ACETAMINOPHEN 500 MG TABLET PO SCH ×2 (07:06→14:52)
[2023-06-28 09:58] VITALS: BP 122/62
--- NOTE | 2023-06-28 12:36 | Discharge Plan ---
Discharge Plan Problem Reviewed?: Yes Disposition: Home, Self Care Condition: Good Diet: Regular Activity Restrictions: No Restrictions Shower Restrictions: No Driving Restrictions: No Weight Bearing: Full Weight Instruction Topics: Vaginal After, Breastfeed Holds, Self Care, Nutrition No Smoking: If you smoke, Please STOP! Call for help.
--- NOTE | 2023-06-28 12:58 | DISCHARGE SUMMARY ---
Discharge Summary Condition at Discharge: Good Discharge Disposition: 01 Home, Self Care - HOSPITAL COURSE Hospital Course: Date of Admission: 06/26/2023 Date of Discharge: 06/28/2023 Diagnosis on Admission: 1. 27yo @ 41.1wks gestation by LMP c/w 9.6wk U/S 2. Early labor 3. Postdates 4. GBS positive 5. FHR Category I Diagnosis on Discharge: 1. 27yo PPD#2 s/p TSVB viable female infant 2. 3. Normal recovery Brief History: She is a patient of [facility] who presented on 06/26/2023 in active labor. Cervix was 3/90/-1 and vertex with intact membranes. She was noted to contract regularly and painfully and was admitted for expectant management. Epidural was placed per maternal request. AROM occurred at 0923 followed by initiation of pitocin for augmentation of labor and a maximum infusion rate of 4mU/mL. She progressed to spontaneously deliver a 64ul6qt female infant on 06/26/2023 following a 35 second shoulder dystocia. Apgars were 8/9 at 1 and 5 minutes respectively. EBL 700mL. She required vaginal packing over night secondary to midline 1st degree vaginal laceration and concern for possible vaginal hematoma development. Packing was removed and there was no longer concern for hematoma development. She has been doing well in her course since that time. She is ambulating and tolerating a regular diet. She is urinating without difficulty and her lochia is normal. Her pain is well controlled with oral medications. She is without difficulty and she is bonding well with her baby. She will be discharged home today with instructions to continue taking her vitamin while and to continue taking ibuprofen and tylenol over the counter as needed for pain management. In addition she has been instructed to continue taking over the counter docusate sodium to avoid straining with bowel movements. She intends to follow up with myself at [facility] in 1 week for routine visit or sooner if needed. She has been given precautions to call if she has any worsening fevers, chills, abdominal pain, increased vaginal bleeding or foul smelling vaginal lochia. Physical exam: Normocephalic, atraumatic. Heart RRR w/o M/G/R, lungs CTAB, abdomen soft and nontender with fundus firm at U-2, perineum intact, light lochia rubra, bilateral LE's 1+ edema. Mood is good. - ALLERGIES Allergies/Adverse Reactions: Allergies Allergy/AdvReac Type Severity Reaction Status Date / Time No Known Drug Allergies Allergy Verified 07/23/21 10:36 - MEDICATIONS Home Medications: Ambulatory Orders Medication Instructions Recorded Confirmed Omeprazole 40 mg PO DAILY #30 07/23/21 - LABS Result Diagrams: 06/26/23 03:35
--- NOTE | 2023-06-28 16:36 | Labor Flowsheet ---
Labor Flowsheet Datetime Report Generated by CPN: 06/28/2023 16:35 Datetime: 06/27/2023 19:35 VITAL SIGNS NBP Sys/Karina/Mean (mmHg): 108 : 64 : 76 Pulse: 91 Datetime: 06/26/2023 22:30 Stage of : Recovery Datetime: 06/26/2023 22:16 Patient Care Comments: Patient dizzy and diaphoretic. Encouraged to take small sips of water. Patie nt states she is starting to feel better but feels very weak. 250 ml fluid bolus started. Datetime: 06/26/2023 22:14 Communication Comments: AReyes Kiara, CNM notified of patient pulse, BP and vomiting/dizziness. Orders r eceived for LR 250 ml bolus at this time. Datetime: 06/26/2023 22:06 COMMUNICATION Communication: RN at Bedside Datetime: 06/26/2023 20:30 Respirations: 16 SpO2 (%): 100 PAIN Pain Scale: 0 Pain Presence: None/Denies Pain Type: N/A Pain Assessment Comments: Patient states she has no pain right now. Medication Comments: Pitocin 30 units/500 mls started at 999mls/hr, per provider order. Datetime: 06/26/2023 19:45 Frequency (min): 1.5-2.5 Quality: Strong Duration (sec): 70-90 Pattern: Normal: <= 5 Contractions in 10 Minutes Resting Tone (Palpate): Relaxed Pitocin Checklist: At Least 1 Acceleration of 15 bpm x 15 Seconds in 30 Minutes or Adequate Variabi lity; No More than 1 Late Deceleration Occurred in Past 30 Minutes; No More than 2 Variable Decelerat ions > 60 Seconds in Duration and decreasing >60 bpm in 30 minutes; No More than 5 Uterine Contractio ns in 10 Minutes for any 20 Minute Interval; Uterus Palpates Soft between Contractions; IUPC Resting Tone less than 25 mmHg ASSESSMENT A Monitor Mode: Telemetry FHR Baseline Rate : 155 Variability: Moderate 6-25 bpm Accelerations: 15X15 Datetime: 06/26/2023 19:44 LaborFlag: Labor Datetime: 06/26/2023 19:40 UTERINE ACTIVITY Monitor Mode: External Datetime: 06/26/2023 19:35 FHR Baseline Changes: Tachycardia Category: Category II Datetime: 06/26/2023 19:30 Decelerations: None Datetime: 06/26/2023 18:58 VAGINAL EXAM Dilatation (cm): 10.0 Effacement (%): 100 Station: 1 Exam by: A. Kaira, CNM Vaginal Bleeding: Normal Show Datetime: 06/26/2023 18:47 Temperature (C): 37.1 Datetime: 06/26/2023 18:34 Cervix, Consistency: Soft Vaginal Exam Comments: pt having somelates, complaining of more pressure Datetime: 06/26/2023 18:05 Patient Position/Activity: Left Lateral; Semi-Fowlers Datetime: 06/26/2023 16:45 Comments: broken tracing due to movement Datetime: 06/26/2023 16:02 MEDICATIONS Pitocin (milliunits): Increased to @ 4 Datetime: 06/26/2023 14:41 Monitor Interventions for UA: [place] Adjusted Monitor Interventions for FHR: Ultrasound Adjusted Datetime: 06/26/2023 13:23 Cervix, Position: Midposition Datetime: 06/26/2023 12:48 Hygiene: Underpad Changed Datetime: 06/26/2023 11:46 Provider Notified (Name): Noris Kiara, [employer] Notification Reason: Status Update; Uterine Activity Datetime: 06/26/2023 10:30 Contraction Comments: indeterminate, uterine irritability Datetime: 06/26/2023 09:25 PATIENT CARE IV/Blood Work: IV Bolus Started Datetime: 06/26/2023 09:23 Membrane Status: Ruptured Membranes Rupture Method: Artificial Amniotic Fluid Color: Clear Amniotic Fluid Amount: Small Amniotic Fluid Odor: Normal Datetime: 06/26/2023 09:09 Membranes Ruptured Date/Time: 06/26/2023 09:23 Datetime: 06/26/2023 08:45 Temperature Route: Oral Datetime: 06/26/2023 08:31 I/O Interventions: Mendez Cath Inserted Datetime: 06/26/2023 08:30 Vital Sign Comments: Pt lying on back for mendez placement Datetime: 06/26/2023 07:50 Epidural Procedure: Loading Dose Epidural Procedure Other: Pump Started Datetime: 06/26/2023 07:24 PROCEDURE TIME OUT Procedure Verify: Correct Patient Identity; Correct Side and Site are Marked; Accurate Procedure Co nsent Form; Agreement on Procedure to be Done; Correct Patient Position; Addressed Need to Administer Antibiotics or Fluids for Irrigation; Safety Precautions Based on Patient History or Medication Use ANESTHESIA Anesthesia Plans: Epidural Epidural Positioning: Sitting Datetime: 06/26/2023 06:43 Pain Coping: Requesting Pain Medication or Epidural
== END 2023-06-28 15:22 | disposition home or self-care (01) | DRG 807 ==
LOC: WFO 03:13 → FBP 03:13 → WFO 03:14
PROVIDERS: ADMIT Nurse Practitioner Obstetrics & Gynecology; ATTEND Nurse Practitioner Obstetrics & Gynecology
PROC: 10907ZC Drainage of Amniotic Fluid, Therapeutic from Products of Conception, Via Natural or Artificial Opening (ICD-10-PCS; principal; 2023-06-26)
PROC: 10E0XZZ Delivery of Products of Conception, External Approach (ICD-10-PCS; 2023-06-26)
PROC: 0KQM0ZZ Repair Perineum Muscle, Open Approach (ICD-10-PCS; 2023-06-26)
PROC: 2Y44X5Z Packing of Female Genital Tract using Packing Material (ICD-10-PCS; 2023-06-26)
DX: O48.0 Post-term pregnancy (principal); Z37.0 Single live birth; O99.824 Streptococcus B carrier state complicating childbirth; Z3A.41 41 weeks gestation of pregnancy; O66.0 Obstructed labor due to shoulder dystocia; O70.1 Second degree perineal laceration during delivery; O99.214 Obesity complicating childbirth; O99.344 Other mental disorders complicating childbirth; F41.9 Anxiety disorder, unspecified
CPT/HCPCS: 36415; 59409; 85025; 86850; 86900; 86901; A9270; J7120